=== PATIENT | female | born 1975 | race Caucasian/White ===

== ENCOUNTER 2024-06-01 09:31 | Day surgery (SDC) | payer BC ==
[2024-06-01] MEDS: Lactated Ringers 1,000 ML IV SCH (10:00)
[2024-06-01] MEDS: oxyCODONE ER 10 MG TAB.ER PO ONE (10:13)
[2024-06-01] MEDS: Acetaminophen 325 MG Tab PO ONE (10:13)
[2024-06-01] MEDS: Pregabalin 25 MG Cap PO ONE (10:13)
[2024-06-01] MEDS ORDERED: Dexamethasone 4 MG/ML 5 ML MDV ONE (11:22)
[2024-06-01] MEDS ORDERED: Ondansetron 4 MG/2 ML SDV ONE (11:22)
[2024-06-01] MEDS ORDERED: Lidocaine 2% 5 ML SDV ONE (11:22)
[2024-06-01] MEDS ORDERED: propofoL 500 MG/50 ML 50 ML ONE (11:23)
[2024-06-01] MEDS ORDERED: Phenylephrine 1% 10 MG/ML SDV ONE (12:00)
[2024-06-01] MEDS ORDERED: ceFAZolin 2 GM Vial ONE (12:13)
[2024-06-01] MEDS ORDERED: Lactated Ringers 1,000 ML ONE (12:13)
[2024-06-01] MEDS ORDERED: Propofol 200 MG/20 ML SDV ONE ×2 (12:54→12:55)
[2024-06-01] MEDS: VANCOmycin 1 GM SDV ONE (13:03)
[2024-06-01] MEDS: Morphine 8 MG, EPINEPHrine 0.3 MG, Cefuroxime 750 MG, Sodium Chloride 0.9% 7.9 ML PRN (13:03)
[2024-06-01] MEDS: Tranexamic Acid 1,000 MG/10 ML Vial ONE (13:03)
[2024-06-01] MEDS ORDERED: Ondansetron 4 MG/2 ML SDV IVPUSH PRN (13:37)
[2024-06-01] MEDS ORDERED: HYDROmorphone 0.5 MG/0.5 ML Syringe IVPUSH PRN (13:37)
[2024-06-01] MEDS ORDERED: fentaNYL 100 MCG/2 ML SDV IVPUSH PRN (13:37)
[2024-06-01] MEDS: oxyCODONE 5 MG Tab PO PRN (16:25)
== END 2024-06-01 17:08 | disposition home or self-care (01) ==
LOC: JD.SDS 09:31
PROVIDERS: ATTEND Orthopaedic Surgery
DX: M16.12 Unilateral primary osteoarthritis, left hip (principal); F17.200 Nicotine dependence, unspecified, uncomplicated; Z88.6 Allergy status to analgesic agent; Z88.5 Allergy status to narcotic agent; Z91.018 Allergy to other foods
CPT/HCPCS: 01214; 73501-26-LT; 73501-LT; 97116-GP; 97161-GP; A9270-GY; C1713; C1776; J0171; J0690; J0697; J1100; J2003; J2272; J2371; J2405; J2704; J3490; J7120